=== PATIENT | male | born 1945 | race African-American/Black ===

== ENCOUNTER 2017-03-12 15:02 | Emergency (ER) | payer OTHER ==
[~2017-03-12] VITALS: Ht 188 cm; Wt 97.7 kg
[~2017-03-12 15:02] MED LIST: ASPIRIN325 MG PO; BACTRIM,SEPT1 TABLET PO; CYMBALTA30 MG PO; DILAUDID4 MG PO; DURAGESIC75 MCG TD; ECOTRIN325 MG PO; FLONASE16 G1 BOTH NARES; LYRICA225 MG PO; Levaquin PO; MANDELAMINE500 MG PO; MS CONTIN100 MG PO; MUSCLE RELAXER; NEURONTIN300 MG PO; NORVASC10 MG PO; OPANA ER40 MG PO; OXYCODONE HCL15 MG PO; PEPCID20 MG PO; ROXICODONE15 MG PO; SENNA PLUS TAB1 EACH PO; TIZANIDINE HCL4 MG PO; VESICARE10 MG PO; ZANAFLEX4 M1 PO; ZOFRAN ODT4 MG PO; ZYRTEC10 M3 PO
[2017-03-12 15:22] LABS: HEMATOCRIT 37.2 % (38.0-50.0); MCH 25.7 PG (29.0-34.0); MCHC 31.5 G/DL (30.0-36.0); MCV 81.8 FL (86-99); MEAN PLAT.VOLUME 10.1 uM^3 (9.0-12.4); PLATELET COUNT 249 K/uL (156-360); RBC DIS.WIDTH-CV 15.3 % (11.8-14.6); RBC DIS.WIDTH-SD 45.8 % (39-53); RED BLOOD COUNT 4.55 M/uL (4.00-5.50); WHITE BLOOD COUNT 6.1 K/uL (4.1-10.2)
[2017-03-12 15:34] LABS: CHLORIDE 104 mEq/L (99-109); POTASSIUM 3.9 mEq/L (3.7-5.4); SODIUM 139 mEq/L (136-147)
[2017-03-12 15:35] LABS: GLUCOSE 91 mg/dL (70-99)
[2017-03-12 15:37] LABS: ANION GAP 13 MEQ/L (2-14)
[2017-03-12 15:39] LABS: GFR ESTIMATE (CALCULATED) > 59 mL/min/
[2017-03-12 15:40] LABS: UREA NITROGEN (BUN) 19 mg/dL (9-23)
[2017-03-12 15:51] LABS: TROP-I INTERPRETATION NEGATIVE; TROPONIN-I < 0.01 ng/mL (0.0-0.30)
[2017-03-12 18:32] LABS: TROP-I INTERPRETATION NEGATIVE; TROPONIN-I < 0.01 ng/mL (0.0-0.30)
[2017-03-12 19:45] VITALS: BP 167/76
== END 2017-03-12 19:46 | disposition home or self-care (01) ==
LOC: EME → EDBD 15:02 → EME 19:46
PROVIDERS: Emergency Medicine
DX: R07.9 Chest pain, unspecified (principal); D64.9 Anemia, unspecified; I10 Essential (primary) hypertension; Z88.6 Allergy status to analgesic agent; Z88.1 Allergy status to other antibiotic agents
CPT/HCPCS: 71020; 80048; 84484; 85027; 85379; 93005; 99281; 99285; J3010

== ENCOUNTER 2017-06-26 14:39 | Emergency (ER) | payer OTHER ==
[~2017-06-26] VITALS: Ht 188 cm; Wt 113.0 kg
[2017-06-26 16:01] LABS: HEMATOCRIT 36.5 % (38.0-50.0); MCH 25.9 PG (29.0-34.0); MCHC 32.1 G/DL (30.0-36.0); MCV 80.8 FL (86-99); MEAN PLAT.VOLUME 10.6 uM^3 (9.0-12.4); PLATELET COUNT 258 K/uL (156-360); RBC DIS.WIDTH-CV 14.8 % (11.8-14.6); RBC DIS.WIDTH-SD 43.6 % (39-53); RED BLOOD COUNT 4.52 M/uL (4.00-5.50); WHITE BLOOD COUNT 7.6 K/uL (4.1-10.2)
[2017-06-26 16:11] LABS: CHLORIDE 99 mEq/L (99-109); POTASSIUM 4.1 mEq/L (3.7-5.4); SODIUM 137 mEq/L (136-147)
[2017-06-26 16:12] LABS: GLUCOSE 93 mg/dL (70-99)
[2017-06-26 16:14] LABS: ANION GAP 13 MEQ/L (2-14)
[2017-06-26 16:16] LABS: GFR ESTIMATE (CALCULATED) > 59 mL/min/
[2017-06-26 16:17] LABS: UREA NITROGEN (BUN) 12 mg/dL (9-23)
[2017-06-26 16:31] LABS: ADD MIUA? YES; BILIRUBIN NEGATIVE; BLOOD SMALL; COLOR YELLOW ((YELLOW)); GLUCOSE (STRIP) NEGATIVE; KETONES NEGATIVE; LEUKOCYTES LARGE; PROTEIN (STRIP) 100; SPECIFIC GRAVITY 1.024 (1.000-1.030)
[2017-06-26 16:38] LABS: BACTERIA 2+ /HPF; EPITHELIAL CELLS NONE SEEN /HPF; MUCUS 2+ /LPF; RED BLOOD CELLS 15-20 /HPF (0-5); UCUL ADDED? YES; WHITE BLOOD CELLS TNTC /HPF (0-5)
[2017-06-26 16:45] LABS: NITRITE POSITIVE
[2017-06-26] MEDS ORDERED: MACROBID100 MG PO (16:56)
[2017-06-26 18:26] VITALS: BP 155/74
== END 2017-06-26 18:46 | disposition home or self-care (01) ==
LOC: EME 14:39
PROVIDERS: Emergency Medicine
DX: N39.0 Urinary tract infection, site not specified (principal); Z87.440 Personal history of urinary (tract) infections; I10 Essential (primary) hypertension; Z93.3 Colostomy status; Z96.0 Presence of urogenital implants; Z79.82 Long term (current) use of aspirin; Z88.6 Allergy status to analgesic agent
CPT/HCPCS: 80048; 81003; 85027; 87077; 87086; 87186; 99281; 99285; J1580; J2270; J7030; J7050

== ENCOUNTER 2017-07-04 21:13 | Inpatient (IN) | payer OTHER ==
[~2017-07-04] VITALS: Ht 188 cm; Wt 100.9 kg
[~2017-07-04 21:13] MED LIST changes: +MACROBID100 MG PO; -NEURONTIN300 MG PO; +NEURONTIN600 MG PO
[2017-07-05 00:25] LABS: HEMATOCRIT 38.3 % (38.0-50.0); MCH 25.6 PG (29.0-34.0); MCHC 31.9 G/DL (30.0-36.0); MCV 80.3 FL (86-99); MEAN PLAT.VOLUME 10.6 uM^3 (9.0-12.4); PLATELET COUNT 288 K/uL (156-360); RBC DIS.WIDTH-CV 14.6 % (11.8-14.6); RBC DIS.WIDTH-SD 42.5 % (39-53); RED BLOOD COUNT 4.77 M/uL (4.00-5.50); WHITE BLOOD COUNT 13.4 K/uL (4.1-10.2)
[2017-07-05 00:37] LABS: CHLORIDE 100 mEq/L (99-109); POTASSIUM 3.7 mEq/L (3.7-5.4); SODIUM 138 mEq/L (136-147)
[2017-07-05 00:39] LABS: GLUCOSE 135 mg/dL (70-99)
[2017-07-05 00:40] LABS: ANION GAP 17 MEQ/L (2-14)
[2017-07-05 00:41] LABS: TOTAL BILIRUBIN 0.4 mg/dL (0.0-1.0)
[2017-07-05 00:42] LABS: ALKALINE PHOSPHATASE 125 IU/L (3-129)
[2017-07-05 00:43] LABS: GFR ESTIMATE (CALCULATED) > 59 mL/min/
[2017-07-05 00:44] LABS: UREA NITROGEN (BUN) 18 mg/dL (9-23)
[2017-07-05 04:08] LABS: ADD MIUA? NO; BILIRUBIN NEGATIVE; BLOOD NEGATIVE; COLOR YELLOW ((YELLOW)); GLUCOSE (STRIP) NEGATIVE; KETONES 5; LEUKOCYTES NEGATIVE; NITRITE NEGATIVE; PROTEIN (STRIP) 30; UCUL ADDED? NO; UROBILINOGEN 0.2 MG/DL (0.2-1.0)
[2017-07-05 04:20] VITALS: BP 188/93
[2017-07-05 08:17] VITALS: BP 178/86
[2017-07-05 11:28] VITALS: BP 179/81
[2017-07-05 12:46] LABS: HEMATOCRIT 39.1 % (38.0-50.0); MCH 25.7 PG (29.0-34.0); MCHC 31.5 G/DL (30.0-36.0); MCV 81.8 FL (86-99); MEAN PLAT.VOLUME 10.8 uM^3 (9.0-12.4); PLATELET COUNT 285 K/uL (156-360); RBC DIS.WIDTH-CV 15.2 % (11.8-14.6); RBC DIS.WIDTH-SD 45.4 % (39-53); RED BLOOD COUNT 4.78 M/uL (4.00-5.50); WHITE BLOOD COUNT 12.2 K/uL (4.1-10.2)
[2017-07-05 13:18] LABS: ANION GAP 13 MEQ/L (2-14); CHLORIDE 102 MEQ/L (99-109); GFR ESTIMATE (CALCULATED) > 59 mL/min/; GLUCOSE 126 mg/dL (70-99); POTASSIUM 3.9 MEQ/L (3.7-5.4); SAMPLE HEMOLYSIS CHECK 0; SAMPLE ICTERIC CHECK 0; SAMPLE LIPEMIA CHECK 0; SODIUM 140 MEQ/L (136-147); UREA NITROGEN (BUN) 17 mg/dL (9-23)
[2017-07-05 15:58] VITALS: BP 166/83
[2017-07-05 20:40] VITALS: BP 182/83
[2017-07-05 23:20] VITALS: BP 151/72
[2017-07-06 04:22] VITALS: BP 181/85
[2017-07-06 08:07] VITALS: BP 142/77
[2017-07-06 08:10] LABS: EOSINOPHIL (%) 0.1 % (0-5); HEMATOCRIT 35.9 % (38.0-50.0); IMMATURE GRANULOCYTE (%) 1.6 % (0.0-0.7); IMMATURE GRANULOCYTE COUNT 0.2 K/uL; INSTRUMENT ABS NEUTROPHIL CT 9.2 K/uL; LYMPHOCYTE COUNT 1.7 K/uL (1.0-2.8); MCH 25.9 PG (29.0-34.0); MCHC 31.5 G/DL (30.0-36.0); MCV 82.3 FL (86-99); MEAN PLAT.VOLUME 11.1 uM^3 (9.0-12.4); MONOCYTE (%) 8.6 % (3-12); NEUTROPHIL (%) 75.6 % (45-76); NEUTROPHIL COUNT 9.2 K/uL (1.8-6.4); PLATELET COUNT 237 K/uL (156-360); RBC DIS.WIDTH-CV 15.4 % (11.8-14.6); RBC DIS.WIDTH-SD 46.2 % (39-53); RED BLOOD COUNT 4.36 M/uL (4.00-5.50); WHITE BLOOD COUNT 12.1 K/uL (4.1-10.2)
[2017-07-06 08:35] LABS: ANION GAP 12 MEQ/L (2-14); CHLORIDE 104 MEQ/L (99-109); GFR ESTIMATE (CALCULATED) > 59 mL/min/; GLUCOSE 118 mg/dL (70-99); POTASSIUM 3.5 MEQ/L (3.7-5.4); SAMPLE HEMOLYSIS CHECK 0; SAMPLE ICTERIC CHECK 0; SAMPLE LIPEMIA CHECK 0; SODIUM 141 MEQ/L (136-147); UREA NITROGEN (BUN) 17 mg/dL (9-23)
[2017-07-06 09:08] LABS: ALKALINE PHOSPHATASE 101 IU/L (3-129); ANION GAP 13 MEQ/L (2-14); CHLORIDE 105 MEQ/L (99-109); GFR ESTIMATE (CALCULATED) > 59 mL/min/; GLUCOSE 117 mg/dL (70-99); POTASSIUM 3.5 MEQ/L (3.7-5.4); SAMPLE HEMOLYSIS CHECK 0; SAMPLE ICTERIC CHECK 0; SAMPLE LIPEMIA CHECK 0; SODIUM 142 MEQ/L (136-147); TOTAL BILIRUBIN 0.5 MG/DL (0.0-1.0); UREA NITROGEN (BUN) 16 mg/dL (9-23)
[2017-07-06 11:25] VITALS: BP 189/86
[2017-07-06 15:57] VITALS: BP 146/77
[2017-07-06 21:59] VITALS: BP 160/80
[2017-07-06 23:11] VITALS: BP 137/74
[2017-07-07 06:44] LABS: MCH 25.6 PG (29.0-34.0); MCHC 30.9 G/DL (30.0-36.0); MCV 82.9 FL (86-99); MEAN PLAT.VOLUME 10.8 uM^3 (9.0-12.4); PLATELET COUNT 213 K/uL (156-360); RBC DIS.WIDTH-CV 15.1 % (11.8-14.6); RBC DIS.WIDTH-SD 45.9 % (39-53); RED BLOOD COUNT 3.98 M/uL (4.00-5.50); WHITE BLOOD COUNT 8.7 K/uL (4.1-10.2)
[2017-07-07 07:06] LABS: ANION GAP 8 MEQ/L (2-14); CHLORIDE 105 MEQ/L (99-109); GFR ESTIMATE (CALCULATED) > 59 mL/min/; GLUCOSE 92 mg/dL (70-99); SAMPLE HEMOLYSIS CHECK 0; SAMPLE ICTERIC CHECK 0; SAMPLE LIPEMIA CHECK 0; SODIUM 141 MEQ/L (136-147); UREA NITROGEN (BUN) 17 mg/dL (9-23)
[2017-07-07 07:07] VITALS: BP 170/79
[2017-07-07 15:06] VITALS: BP 176/77
[2017-07-07 19:29] VITALS: BP 176/79
[2017-07-07 23:37] VITALS: BP 160/74
[2017-07-08 07:46] VITALS: BP 183/82
[2017-07-08] MEDS ORDERED: NIFEDIPINE20 MG PO (10:21)
[2017-07-08 11:33] VITALS: BP 157/70
== END 2017-07-08 14:45 | disposition home or self-care (01) | DRG 389 ==
LOC: EME → EDBD 21:13 → EME 21:13 → EDOF 07-05 01:26 → 3EAST 07-05 01:26 → EDOF 07-05 01:26 → ENRESERV 07-05 01:32 → 3EAST 07-05 03:18
PROVIDERS: Emergency Medicine; Hospitalist; Surgery
DX: K56.69 Other intestinal obstruction (principal); F11.23 Opioid dependence with withdrawal; E87.2 Acidosis; G81.91 Hemiplegia, unspecified affecting right dominant side; I10 Essential (primary) hypertension; J45.909 Unspecified asthma, uncomplicated; M54.30 Sciatica, unspecified side; Z93.3 Colostomy status; N39.0 Urinary tract infection, site not specified
CPT/HCPCS: 71010; 74020; 74176; 80048; 80053; 81003; 83605; 85025; 85027; 99202; 99281; 99285; J0360; J0744; J1170; J1200; J1644; J2060; J2270; J2405; J3010; J7030; J7040; S0028; S0030

== ENCOUNTER 2017-07-09 11:08 | Observation (INO) | payer OTHER ==
[~2017-07-09] VITALS: Ht 188 cm; Wt 114.5 kg
[~2017-07-09 11:08] MED LIST changes: +NIFEDIPINE20 MG PO
[2017-07-09 13:28] LABS: HEMATOCRIT 37.4 % (38.0-50.0); MCH 25.5 PG (29.0-34.0); MCHC 31.8 G/DL (30.0-36.0); MCV 80.1 FL (86-99); MEAN PLAT.VOLUME 10.6 uM^3 (9.0-12.4); PLATELET COUNT 220 K/uL (156-360); RBC DIS.WIDTH-CV 14.5 % (11.8-14.6); RBC DIS.WIDTH-SD 41.7 % (39-53); RED BLOOD COUNT 4.67 M/uL (4.00-5.50); WHITE BLOOD COUNT 7.4 K/uL (4.1-10.2)
[2017-07-09 13:37] LABS: CHLORIDE 106 mEq/L (99-109); POTASSIUM 3.7 mEq/L (3.7-5.4); SODIUM 138 mEq/L (136-147)
[2017-07-09 13:40] LABS: GLUCOSE 100 mg/dL (70-99)
[2017-07-09 13:41] LABS: ANION GAP 12 MEQ/L (2-14)
[2017-07-09 13:42] LABS: TOTAL BILIRUBIN 0.7 mg/dL (0.0-1.0)
[2017-07-09 13:43] LABS: ALKALINE PHOSPHATASE 114 IU/L (3-129); GFR ESTIMATE (CALCULATED) > 59 mL/min/
[2017-07-09 13:44] LABS: UREA NITROGEN (BUN) 12 mg/dL (9-23)
[2017-07-09 13:47] LABS: LIPASE 29 U/L (1.0-51.0)
[2017-07-10 01:47] VITALS: BP 203/85
[2017-07-10 04:00] VITALS: BP 144/75
[2017-07-10 06:19] LABS: EOSINOPHIL (%) 0.4 % (0-5); HEMATOCRIT 30.1 % (38.0-50.0); IMMATURE GRANULOCYTE (%) 0.4 % (0.0-0.7); INSTRUMENT ABS NEUTROPHIL CT 4.5 K/uL; LYMPHOCYTE COUNT 1.5 K/uL (1.0-2.8); MCH 26.6 PG (29.0-34.0); MCHC 32.6 G/DL (30.0-36.0); MCV 81.8 FL (86-99); MEAN PLAT.VOLUME 11.3 uM^3 (9.0-12.4); MONOCYTE (%) 11.6 % (3-12); MONOCYTE COUNT 0.8 K/uL (0-0.8); NEUTROPHIL (%) 65.2 % (45-76); NEUTROPHIL COUNT 4.5 K/uL (1.8-6.4); PLATELET COUNT 212 K/uL (156-360); RBC DIS.WIDTH-CV 14.9 % (11.8-14.6); RBC DIS.WIDTH-SD 43.8 % (39-53); RED BLOOD COUNT 3.68 M/uL (4.00-5.50); WHITE BLOOD COUNT 6.8 K/uL (4.1-10.2)
[2017-07-10 06:22] LABS: ANION GAP 12 MEQ/L (2-14); CHLORIDE 106 MEQ/L (99-109); GFR ESTIMATE (CALCULATED) > 59 mL/min/; GLUCOSE 113 mg/dL (70-99); POTASSIUM 3.7 MEQ/L (3.7-5.4); SAMPLE HEMOLYSIS CHECK 0; SAMPLE ICTERIC CHECK 0; SAMPLE LIPEMIA CHECK 0; SODIUM 140 MEQ/L (136-147); UREA NITROGEN (BUN) 15 mg/dL (9-23)
[2017-07-10 07:07] VITALS: BP 126/64
[2017-07-10 11:37] VITALS: BP 128/60
[2017-07-10] MEDS ORDERED: KONSYL PSYLLIU3.4 GM PO (16:55)
== END 2017-07-10 19:24 | disposition home or self-care (01) ==
LOC: EME 11:08 → EDOF 21:51 → 5WEST 21:51 → ENRESERV 21:53 → 5WEST 07-10 01:37
PROVIDERS: Hospitalist
DX: M79.2 Neuralgia and neuritis, unspecified (principal); R10.84 Generalized abdominal pain; K59.09 Other constipation; F11.23 Opioid dependence with withdrawal; T40.2X5A Adverse effect of other opioids, initial encounter; E87.2 Acidosis; D72.829 Elevated white blood cell count, unspecified; Z87.19 Personal history of other diseases of the digestive system; G89.29 Other chronic pain; Z93.3 Colostomy status; I10 Essential (primary) hypertension; J45.909 Unspecified asthma, uncomplicated; F32.9 Major depressive disorder, single episode, unspecified; E66.01 Morbid (severe) obesity due to excess calories; K80.20 Calculus of gallbladder without cholecystitis without obstruction; Z88.0 Allergy status to penicillin
CPT/HCPCS: 74177; 80048; 80053; 81003; 83690; 85025; 85027; 93005; 94799; 99281; 99285; C1894; G0378; J1650; J2270; J2405; J3010; J7030; S0028

== ENCOUNTER 2017-10-02 09:48 | Inpatient (IN) | payer OTHER ==
[~2017-10-02] VITALS: Ht 185.4 cm; Wt 114.5 kg
[~2017-10-02 09:48] MED LIST changes: +KONSYL PSYLLIU3.4 GM PO
[2017-10-02 10:43] LABS: EOSINOPHIL (%) 0 % (0-5); HEMATOCRIT 38.5 % (38.0-50.0); IMMATURE GRANULOCYTE (%) 1.4 % (0.0-0.7); IMMATURE GRANULOCYTE COUNT 0.2 K/uL; INSTRUMENT ABS NEUTROPHIL CT 10.1 K/uL; MCH 24.7 PG (29.0-34.0); MCHC 31.9 G/DL (30.0-36.0); MCV 77.3 FL (86-99); MEAN PLAT.VOLUME 10.6 uM^3 (9.0-12.4); MONOCYTE (%) 3.8 % (3-12); MONOCYTE COUNT 0.5 K/uL (0-0.8); NEUTROPHIL (%) 86.3 % (45-76); NEUTROPHIL COUNT 10.1 K/uL (1.8-6.4); PLATELET COUNT 301 K/uL (156-360); RBC DIS.WIDTH-CV 14.9 % (11.8-14.6); RBC DIS.WIDTH-SD 41.3 % (39-53); RED BLOOD COUNT 4.98 M/uL (4.00-5.50); WHITE BLOOD COUNT 11.8 K/uL (4.1-10.2)
[2017-10-02 10:52] LABS: CHLORIDE 98 mEq/L (99-109); POTASSIUM 3.7 mEq/L (3.7-5.4); SODIUM 135 mEq/L (136-147)
[2017-10-02 10:54] LABS: GLUCOSE 135 mg/dL (70-99)
[2017-10-02 10:55] LABS: ANION GAP 16 MEQ/L (2-14)
[2017-10-02 10:56] LABS: TOTAL BILIRUBIN 0.9 mg/dL (0.0-1.0)
[2017-10-02 10:57] LABS: ALKALINE PHOSPHATASE 122 IU/L (3-129)
[2017-10-02 10:58] LABS: GFR ESTIMATE (CALCULATED) > 59 mL/min/
[2017-10-02 10:59] LABS: UREA NITROGEN (BUN) 11 mg/dL (9-23)
[2017-10-02 11:01] LABS: LIPASE 17 U/L (1.0-51.0)
[2017-10-02 16:33] VITALS: BP 227/110
[2017-10-02] MEDS ORDERED: AMLODIPINE BESY10 MG PO (17:32)
[2017-10-02 18:30] VITALS: BP 179/84
[2017-10-02 19:55] VITALS: BP 173/81
[2017-10-02 22:23] LABS: ADD MIUA? YES; BILIRUBIN NEGATIVE; BLOOD SMALL; COLOR YELLOW ((YELLOW)); GLUCOSE (STRIP) NEGATIVE; KETONES 20; LEUKOCYTES SMALL; NITRITE POSITIVE; PROTEIN (STRIP) 30; UROBILINOGEN 0.2 MG/DL (0.2-1.0)
[2017-10-02 22:30] LABS: SPECIFIC GRAVITY 1.056 (1.000-1.030)
[2017-10-02 22:35] LABS: BACTERIA 3+ /HPF; EPITHELIAL CELLS NONE SEEN /HPF; MUCUS TRACE /LPF; RED BLOOD CELLS 0-5 /HPF (0-5); UCUL ADDED? YES; WHITE BLOOD CELLS 20-30 /HPF (0-5); WHITE BLOOD CELLS CLUMP RARE /HPF (0-5)
[2017-10-02 23:30] VITALS: BP 175/57
[2017-10-03 03:26] VITALS: BP 182/86
[2017-10-03 07:20] VITALS: BP 186/84
[2017-10-03 09:23] LABS: HEMATOCRIT 35.8 % (38.0-50.0); MCH 25.3 PG (29.0-34.0); MCHC 31.6 G/DL (30.0-36.0); MCV 80.1 FL (86-99); MEAN PLAT.VOLUME 10.9 uM^3 (9.0-12.4); PLATELET COUNT 261 K/uL (156-360); RBC DIS.WIDTH-CV 15.4 % (11.8-14.6); RBC DIS.WIDTH-SD 44.7 % (39-53); RED BLOOD COUNT 4.47 M/uL (4.00-5.50)
[2017-10-03 09:40] LABS: ANION GAP 10 MEQ/L (2-14); CHLORIDE 103 MEQ/L (99-109); POTASSIUM 4.1 MEQ/L (3.7-5.4); SAMPLE HEMOLYSIS CHECK 0; SAMPLE ICTERIC CHECK 0; SAMPLE LIPEMIA CHECK 0; SODIUM 137 MEQ/L (136-147); TOTAL BILIRUBIN 0.5 MG/DL (0.0-1.0)
[2017-10-03 09:50] LABS: ALKALINE PHOSPHATASE 97 IU/L (3-129); GFR ESTIMATE (CALCULATED) > 59 mL/min/; GLUCOSE 110 mg/dL (70-99); UREA NITROGEN (BUN) 16 mg/dL (9-23)
[2017-10-03 11:40] VITALS: BP 167/72
[2017-10-03 15:51] VITALS: BP 165/81
[2017-10-03 20:19] VITALS: BP 188/89
[2017-10-03 22:10] VITALS: BP 130/65
[2017-10-04] VITALS (7 sets, daily range): BP systolic 110–158; BP diastolic 56–72
[2017-10-04 07:14] LABS: EOSINOPHIL (%) 0.8 % (0-5); EOSINOPHIL COUNT 0.1 K/uL (0-0.3); HEMATOCRIT 31.3 % (38.0-50.0); IMMATURE GRANULOCYTE (%) 0.3 % (0.0-0.7); LYMPHOCYTE COUNT 1.7 K/uL (1.0-2.8); MCH 25.1 PG (29.0-34.0); MCHC 30.7 G/DL (30.0-36.0); MCV 81.9 FL (86-99); MONOCYTE (%) 9.1 % (3-12); MONOCYTE COUNT 0.6 K/uL (0-0.8); NEUTROPHIL (%) 62.3 % (45-76); PLATELET COUNT 232 K/uL (156-360); RBC DIS.WIDTH-CV 15.5 % (11.8-14.6); RBC DIS.WIDTH-SD 46.5 % (39-53); RED BLOOD COUNT 3.82 M/uL (4.00-5.50); WHITE BLOOD COUNT 6.4 K/uL (4.1-10.2)
[2017-10-04 07:50] LABS: ANION GAP 8 MEQ/L (2-14); CHLORIDE 107 MEQ/L (99-109); GFR ESTIMATE (CALCULATED) > 59 mL/min/; MAGNESIUM 2.3 mg/dl (1.3-2.7); SAMPLE HEMOLYSIS CHECK 0; SAMPLE ICTERIC CHECK 0; SAMPLE LIPEMIA CHECK 0; SODIUM 140 MEQ/L (136-147); UREA NITROGEN (BUN) 17 mg/dL (9-23)
[2017-10-04 07:53] LABS: GLUCOSE 78 mg/dL (70-99)
[2017-10-05 06:56] VITALS: BP 170/74
[2017-10-05 08:59] VITALS: BP 160/78
[2017-10-05 10:01] VITALS: BP 142/65
[2017-10-05 23:15] VITALS: BP 141/63
[2017-10-06 08:18] VITALS: BP 185/83
[2017-10-06] MEDS ORDERED: BACTRIM,SEPT1 TABLET PO (08:56)
[2017-10-06] MEDS ORDERED: MIRALAX17 GM PO (08:59)
[2017-10-06 11:07] VITALS: BP 185/83
== END 2017-10-06 12:27 | disposition home or self-care (01) | DRG 690 ==
LOC: EME 09:48 → 2EAST 13:34 → EDOF 13:34 → ENRESERV 13:37 → 2EAST 16:08
PROVIDERS: Emergency Medicine; Family Medicine; Physician Assistant
DX: N39.0 Urinary tract infection, site not specified (principal); K56.600 Partial intestinal obstruction, unspecified as to cause; F11.20 Opioid dependence, uncomplicated; I10 Essential (primary) hypertension; K59.03 Drug induced constipation; B96.89 Other specified bacterial agents as the cause of diseases classified elsewhere; T40.2X5A Adverse effect of other opioids, initial encounter; E66.9 Obesity, unspecified; M79.2 Neuralgia and neuritis, unspecified; M54.30 Sciatica, unspecified side; G83.11 Monoplegia of lower limb affecting right dominant side; K56.7 Ileus, unspecified; G89.4 Chronic pain syndrome; Z88.1 Allergy status to other antibiotic agents; Z93.3 Colostomy status; Z93.59 Other cystostomy status; Z68.33 Body mass index [BMI] 33.0-33.9, adult
CPT/HCPCS: 71010; 74000; 74177; 80048; 80053; 81003; 83605; 83690; 83735; 85025; 85027; 87040; 87077; 87086; 87186; 99281; 99285; J0360; J0696; J1170; J1644; J1885; J2060; J2270; J2405; J7030; S0028

== ENCOUNTER 2017-10-29 20:18 | Emergency (ER) | payer OTHER ==
[~2017-10-29] VITALS: Ht 188 cm; Wt 114.5 kg
[~2017-10-29 20:18] MED LIST changes: +AMLODIPINE BESY10 MG PO; +MIRALAX17 GM PO
[2017-10-29 21:33] LABS: APPEARANCE CLOUDY ((CLEAR)); BILIRUBIN NEGATIVE; BLOOD LARGE; COLOR YELLOW ((YELLOW)); GLUCOSE (STRIP) NEGATIVE; KETONES NEGATIVE; LEUKOCYTES LARGE; NITRITE NEGATIVE; PROTEIN (STRIP) 100; SPECIFIC GRAVITY 1.017 (1.000-1.030); UROBILINOGEN 0.2 MG/DL (0.2-1.0)
[2017-10-29 22:04] LABS: BACTERIA RARE /HPF; EPITHELIAL CELLS NONE SEEN /HPF; MUCUS NONE SEEN /LPF; RED BLOOD CELLS TNTC /HPF (0-5); UCUL ADDED? YES
[2017-10-30 00:16] LABS: HEMOGLOBIN 11.9 G/DL (12.5-16.6); MCH 25.2 PG (29.0-34.0); MCHC 32.2 G/DL (30.0-36.0); MCV 78.4 FL (86-99); PLATELET COUNT 261 K/uL (156-360); RBC DIS.WIDTH-CV 15.5 % (11.8-14.6); RBC DIS.WIDTH-SD 43.5 % (39-53); RED BLOOD COUNT 4.72 M/uL (4.00-5.50); WHITE BLOOD COUNT 9.4 K/uL (4.1-10.2)
[2017-10-30 00:24] LABS: CHLORIDE 103 mEq/L (99-109); POTASSIUM 3.6 mEq/L (3.7-5.4); SODIUM 138 mEq/L (136-147)
[2017-10-30 00:26] LABS: GLUCOSE 97 mg/dL (70-99)
[2017-10-30 00:30] LABS: CREATININE 1.1 mg/dL (0.6-1.3); GFR ESTIMATE (CALCULATED) > 59 mL/min/ (58.99-99999); UREA NITROGEN (BUN) 15 mg/dL (9-23)
[2017-10-30] MEDS ORDERED: CIPRO500 MG PO (01:20)
[2017-10-30 02:25] VITALS: BP 168/102
== END 2017-10-30 02:28 | disposition home or self-care (01) ==
LOC: EME 20:18
PROVIDERS: Nurse Practitioner Family
DX: N39.0 Urinary tract infection, site not specified (principal); Z87.440 Personal history of urinary (tract) infections; Z96.0 Presence of urogenital implants; Z93.3 Colostomy status; I10 Essential (primary) hypertension; G89.29 Other chronic pain; J45.909 Unspecified asthma, uncomplicated; F32.9 Major depressive disorder, single episode, unspecified; Z88.1 Allergy status to other antibiotic agents; Z88.5 Allergy status to narcotic agent
CPT/HCPCS: 80048; 81003; 83605; 85027; 87077; 87086; 87186; 99281; 99284; J2270; J7030

== ENCOUNTER 2017-11-07 09:19 | Inpatient (IN) | payer OTHER ==
[~2017-11-07] VITALS: Ht 188 cm; Wt 106.8 kg
[~2017-11-07 09:19] MED LIST changes: +CIPRO500 MG PO
[2017-11-07 10:05] LABS: BASOPHIL (%) 0.5 % (0-1); EOSINOPHIL (%) 1.9 % (0-5); EOSINOPHIL COUNT 0.1 K/uL (0-0.3); HEMATOCRIT 40.1 % (38.0-50.0); HEMOGLOBIN 12.5 G/DL (12.5-16.6); IMMATURE GRANULOCYTE (%) 0.4 % (0.0-0.7); LYMPHOCYTE (%) 23.4 % (15-42); LYMPHOCYTE COUNT 1.7 K/uL (1.0-2.8); MCH 24.8 PG (29.0-34.0); MCHC 31.2 G/DL (30.0-36.0); MCV 79.4 FL (86-99); MONOCYTE COUNT 0.6 K/uL (0-0.8); NEUTROPHIL (%) 65.8 % (45-76); NEUTROPHIL COUNT 4.8 K/uL (1.8-6.4); PLATELET COUNT 272 K/uL (156-360); RBC DIS.WIDTH-CV 15.9 % (11.8-14.6); RBC DIS.WIDTH-SD 45.4 % (39-53); RED BLOOD COUNT 5.05 M/uL (4.00-5.50); WHITE BLOOD COUNT 7.3 K/uL (4.1-10.2)
[2017-11-07 10:55] LABS: CHLORIDE 105 MEQ/L (99-109); CREATININE 1.2 MG/DL (0.6-1.3); GFR ESTIMATE (CALCULATED) > 59 mL/min/ (58.99-99999); GLUCOSE 112 mg/dL (70-99); POTASSIUM 3.8 MEQ/L (3.7-5.4); SODIUM 139 MEQ/L (136-147); UREA NITROGEN (BUN) 16 mg/dL (9-23)
[2017-11-07] MEDS ORDERED: MS CONTIN,ORAMO60 MG PO (11:38)
[2017-11-07] MEDS ORDERED: MIRALAX17 GM PO (11:39)
[2017-11-07] MEDS ORDERED: B-121000 MC2 PO (11:39)
[2017-11-07] MEDS ORDERED: TYLENOL EXTRA500 MG PO (11:40)
[2017-11-07 16:30] VITALS: BP 172/79
[2017-11-07 19:56] VITALS: BP 149/71
[2017-11-07 23:59] VITALS: BP 94/51
[2017-11-08 03:47] VITALS: BP 98/56
[2017-11-08 07:00] VITALS: BP 128/62
[2017-11-08 11:34] VITALS: BP 134/65
[2017-11-08 16:33] VITALS: BP 130/66
[2017-11-08 20:26] VITALS: BP 140/64
[2017-11-09 00:01] VITALS: BP 127/65
[2017-11-09 06:59] LABS: HEMATOCRIT 34.7 % (38.0-50.0); MCH 24.4 PG (29.0-34.0); MCHC 30.3 G/DL (30.0-36.0); MCV 80.5 FL (86-99); PLATELET COUNT 245 K/uL (156-360); RBC DIS.WIDTH-CV 15.8 % (11.8-14.6); RBC DIS.WIDTH-SD 46.2 % (39-53); RED BLOOD COUNT 4.31 M/uL (4.00-5.50); WHITE BLOOD COUNT 3.7 K/uL (4.1-10.2)
[2017-11-09 07:00] LABS: HEMOGLOBIN 10.5 G/DL (12.5-16.6)
[2017-11-09 07:17] LABS: CHLORIDE 105 MEQ/L (99-109); CREATININE 1.1 MG/DL (0.6-1.3); GFR ESTIMATE (CALCULATED) > 59 mL/min/ (58.99-99999); GLUCOSE 102 mg/dL (70-99); POTASSIUM 4.1 MEQ/L (3.7-5.4); SODIUM 138 MEQ/L (136-147); UREA NITROGEN (BUN) 11 mg/dL (9-23)
[2017-11-09 08:11] VITALS: BP 139/64
[2017-11-09] MEDS ORDERED: OXYCODONE HCL15 MG PO (11:43)
[2017-11-09] MEDS ORDERED: MS CONTIN,ORAMO60 MG PO (11:43)
[2017-11-09] MEDS ORDERED: CEFEPIME-D1 GM/50 ML IV (11:45)
== END 2017-11-09 14:40 | disposition home or self-care (01) | DRG 699 ==
LOC: EME 09:19 → EDOF 11:08 → 2EAST 11:08 → ENRESERV 11:09 → 2EAST 16:22
PROVIDERS: Emergency Medicine; Family Medicine
DX: T83.510A Infection and inflammatory reaction due to cystostomy catheter, initial encounter (principal); N39.0 Urinary tract infection, site not specified; R31.9 Hematuria, unspecified; B96.5 Pseudomonas (aeruginosa) (mallei) (pseudomallei) as the cause of diseases classified elsewhere; Z16.24 Resistance to multiple antibiotics; Y83.3 Surgical operation with formation of external stoma as the cause of abnormal reaction of the patient, or of later complication, without mention of misadventure at the time of the procedure; I10 Essential (primary) hypertension; N31.9 Neuromuscular dysfunction of bladder, unspecified; F11.20 Opioid dependence, uncomplicated; G89.29 Other chronic pain; G83.11 Monoplegia of lower limb affecting right dominant side; Z93.3 Colostomy status; Z87.440 Personal history of urinary (tract) infections; Z93.59 Other cystostomy status; Z74.01 Bed confinement status; Z87.828 Personal history of other (healed) physical injury and trauma
CPT/HCPCS: 80048; 81003; 85025; 85027; 87040; 99281; 99285; J1650; J2543; J7030; J7050